=== PATIENT | female | born 1995 | race Two or more races ===

== ENCOUNTER 2017-07-12 09:20 | Outpatient (CLI) | payer OTHER ==
[~2017-07-12 09:20] MED LIST: ABILIFY5 MG; MONONESSA1 TAB; PROZAC20 MG
== END 2017-07-12 11:19 | disposition home or self-care (01) ==
LOC: RAD 501 09:20
DX: M25.561 Pain in right knee (principal); M25.562 Pain in left knee

== ENCOUNTER 2018-03-24 13:08 | Emergency (ER) | payer OTHER ==
[~2018-03-24] VITALS: Ht 165.1 cm; Wt 71.2 kg
== END 2018-03-24 18:31 | disposition home or self-care (01) ==
LOC: ER 13:08
DX: K59.09 Other constipation (principal); R10.31 Right lower quadrant pain

== ENCOUNTER 2019-11-25 14:33 | Emergency (ER) | payer OTHER ==
[~2019-11-25] VITALS: Ht 160 cm; Wt 71.2 kg
[2019-11-25] MEDS ORDERED: VISTARIL25 MG (14:45)
[2019-11-25] MEDS ORDERED: ABILIFY10 MG (14:46)
[2019-11-25] MEDS ORDERED: CARAFATE1 GM PO (17:39)
[2019-11-25] MEDS ORDERED: MACROBID 100 M100 MG PO (17:39)
[2019-11-25] MEDS ORDERED: PEPCID20 MG PO (17:39)
== END 2019-11-25 18:13 | disposition home or self-care (01) ==
LOC: ER 14:33
DX: N39.0 Urinary tract infection, site not specified (principal); K29.60 Other gastritis without bleeding; Z20.828 Contact with and (suspected) exposure to other viral communicable diseases

== ENCOUNTER 2019-12-18 11:33 | Emergency (ER) | payer OTHER ==
[~2019-12-18] VITALS: Ht 162.6 cm; Wt 72.6 kg
[~2019-12-18 11:33] MED LIST changes: +ABILIFY10 MG; +CARAFATE1 GM PO; +MACROBID 100 M100 MG PO; +PEPCID20 MG PO; +VISTARIL25 MG
== END 2019-12-18 19:31 | disposition home or self-care (01) ==
LOC: ER 11:33
DX: K29.60 Other gastritis without bleeding (principal); N39.0 Urinary tract infection, site not specified; F41.8 Other specified anxiety disorders; Z03.818 Encounter for observation for suspected exposure to other biological agents ruled out